=== PATIENT | female | born 1955 | race Caucasian/White ===

== ENCOUNTER 2016-10-14 11:12 | Observation (INO) | payer MEDICAID ==
[2016-10-14] VITALS (8 sets, daily range): BP systolic 110–179; BP diastolic 58–93; PULSE 72–91; RESP 18–24; TEMP 97.3–97.7; O2SAT 92–99
[~2016-10-14] VITALS: Ht 160 cm; Wt 111.0 kg
[~2016-10-14 11:12] MED LIST: ALBU8I INH; CIMZ200K SC; FOLIPOW27; GABA100C4 PO; HYDR200T42 PO; IBUP800T23 PO; LISI-360 PO; METH2.5 PO; PRED-1 PO
--- NOTE | 2016-10-14 11:31 | PD ---
HPI Chief Complaint: Respiratory Distress Time Seen by Provider: 11:31 Travel History International Travel<30 days: No Contact w/Intl Traveler<30days: No Traveled to known affect area: No History of Present Illness HPI 61-year-old female presents the emergency department with one week history of increasing shortness of breath and wheezing. Patient does not speak Serbian but refuses an medical interpreter, but her daughter is here for interpretation. Patient states increasing chest tightness and wheezing, without significant pain. Patient has had fever in the last 24 hours and productive cough of small amount of thick mucus. Patient has history of pneumonia in the past as well as COPD for which she uses an inhaler at home but not nebulizer. Patient has needed prednisone in the past for her lungs. Patient also has significant history for CHF in the past treated with a "water pill" previously. Patient denies chest pain or pressure. She denies nausea, vomiting, or back pain. She denies abdominal pain. She denies urine symptoms. Patient has no headache, sore throat, ear pain. Patient has been using her inhaler more frequently without improvement. She has no known drug allergies. PFSH Past Medical History Arthritis: Yes (ra) Asthma: No Blood Disorders: No Anxiety: Yes Depression: Yes Heart Rhythm Problems: No Cancer: No Cardiovascular Problems: Yes (CHF) High Cholesterol: No Chemotherapy: No Chest Pain: No Congestive Heart Failure: No COPD: No Diabetes: No Endocrine: No Genitourinary: No Hypertension: Yes Immune Disorder: No Musculoskeletal: No Neurologic: No Psychiatric: Yes Reproductive: Yes Respiratory: No Radiation Therapy: No Sleep Apnea: No Thyroid Disease: No ?: Not : 2 Para: 2 Past Surgical History Section: Yes Social History Alcohol Use: No Tobacco Use: No Substance Use: No Allergies-Medications (Allergen,Severity, Reaction): Coded Allergies: No Known Allergies (Unverified , 10/14/16) Reported Meds & Prescriptions Reported Meds & Active Scripts Active Reported Methotrexate 2.5 Mg Tab 15 Mg PO Q7D Potassium 75 Mg Tab 75 Tab PO DAILY Folic Acid 5 Mg Cap 5 Mg PO DAILY Gabapentin 100 Mg Cap 100 Mg PO BID Cimzia (2 syringe) Kit Inj (Certolizumab Pegol Inj) 200 Mg/Ml Kit 400 Mg SQ Q14D Administer 2 syringes (400 mg) to separate sites. Furosemide 40 Mg Tab 40 Mg PO DAILY Ibuprofen 800 Mg Tab 800 Mg PO TID Sertraline (Sertraline HCl) 50 Mg Tab 50 Mg PO DAILY Review of Systems Except as stated in HPI: all other systems reviewed are Neg General / Constitutional: Positive: Fever, Chills Eyes: No: Visual changes HENT: No: Headaches, Vertigo, Lightheadedness, Sore Throat, Rhinitis, Rhinorrhea, Congestion, Nosebleed, Neck Stiffness, Neck Pain, Dental Difficulties, Earache Cardiovascular: Positive: Dyspnea on exertion, No: Chest Pain or Discomfort, Palpitations, Irregular Rhythm, Tachycardia, Diaphoresis, Syncope Respiratory: Positive: Cough, Shortness of Breath, Wheezing, Orthopnea, No: Hemoptysis, Stridor, Night Sweats, Pleuritic Pain, Other Gastrointestinal: No: Nausea, Vomiting, Diarrhea, Abdominal Pain Genitourinary: No: Dysuria Musculoskeletal: No: Myalgias, Arthralgias, Limited ROM, Pain Skin: No Rash Neurologic: No: Weakness Psychiatric: No: Depression Endocrine: No: Polydipsia Hematologic/Lymphatic: No: Easy Bruising Physical Exam Narrative GENERAL: Patient appears in mild to moderate respiratory distress. SKIN: Warm and dry. Mild pallor. Normal turgor. HEAD: Atraumatic. Normocephalic. EYES: Pupils equal and round. No scleral icterus. No injection or drainage. ENT: No nasal bleeding or discharge. Mucous membranes pink and moist. TMs are clear. Pharynx is normal. Airway is patent. NECK: Trachea midline. No JVD. Neck is supple nontender. CARDIOVASCULAR: Regular rate and rhythm. RESPIRATORY: Moderate accessory muscle use. Moderate Diffuse wheezes to auscultation. No rales or rhonchi. Breath sounds equal bilaterally. GASTROINTESTINAL: Abdomen soft, non-tender, nondistended. Hepatic and splenic margins not palpable. MUSCULOSKELETAL: Extremities without clubbing, cyanosis, or edema. No obvious deformities. NEUROLOGICAL: Awake and alert. No obvious cranial nerve deficits. Motor grossly within normal limits. Five out of 5 muscle strength in the arms and legs. Normal speech. PSYCHIATRIC: Appropriate mood and affect; insight and judgment normal. Data Data Last Documented VS Vital Signs Date Time Temp Pulse Resp B/P Pulse Ox O2 Delivery O2 Flow Rate FiO2 10/14/16 12:52 77 23 144/86 99 Nasal Cannula 2 10/14/16 11:15 97.7 Orders Electrocardiogram (10/14/16 11:34) Complete Blood Count With Diff (10/14/16 11:34) Comprehensive Metabolic Panel (10/14/16 11:34) Chest, Pa & Lat (10/14/16 11:34) Ecg Monitoring (10/14/16 11:34) Iv Access Insert/Monitor (10/14/16 11:34) Oximetry (10/14/16 11:34) Oxygen Administration (10/14/16 11:34) Methylprednisolone So Succ Inj (Solumedr (10/14/16 11:45) Albuterol-Ipratropium Neb (Duoneb Neb) (10/14/16 11:45) Sodium Chloride 0.9% Flush (Ns Flush) (10/14/16 11:45) B-Type Natriuretic Peptide (10/14/16 11:34) Magnesium (Mg) (10/14/16 11:34) Prothrombin Time / Inr (Pt) (10/14/16 11:34) Act Partial Throm Time (Ptt) (10/14/16 11:34) Troponin I (10/14/16 11:34) Aspirin Chew (Aspirin Chew) (10/14/16 11:45) Furosemide Inj (Lasix Inj) (10/14/16 11:45) Lactic Acid (10/14/16 11:44) Blood Culture (10/14/16 11:44) Urinalysis - C+S If Indicated (10/14/16 11:57) Ceftriaxone Inj (Rocephin Inj) (10/14/16 14:15) Azithromycin Inj (Zithromax Inj) (10/14/16 14:15) Folic Acid (Folate) (10/15/16 09:00) Furosemide (Lasix) (10/15/16 09:00) Gabapentin (Neurontin) (10/14/16 21:00) Sertraline (Zoloft) (10/15/16 09:00) (Nf) Certolizumab Pegol Inj (Cimzia (2 S (10/14/16 14:30) Place In Observation (10/14/16 ) Vital Signs (Adult) Q4H (10/14/16 14:26) Activity Oob Ad Marium (10/14/16 14:26) Intake + Output ROLDAN.QSHIFT (10/14/16 14:26) Notify Dr: Other (10/14/16 14:26) Diet Heart Healthy (10/14/16 Dinner) Sodium Chloride 0.9% Flush (Ns Flush) (10/14/16 14:30) Sodium Chloride 0.9% Flush (Ns Flush) (10/14/16 21:00) Acetaminophen (Tylenol) (10/14/16 14:30) Ondansetron Inj (Zofran Inj) (10/14/16 14:30) Bisacodyl Supp (Dulcolax Supp) (10/14/16 14:30) Docusate Sodium (Colace) (10/14/16 14:30) Basic Metabolic Panel (Bmp) (10/15/16 06:00) Complete Blood Count With Diff (10/15/16 06:00) Creatine Kinase (Cpk) (10/14/16 14:26) Creatine Kinase (Cpk) (10/14/16 20:26) Troponin I (10/14/16 14:26) Troponin I (10/14/16 20:26) Enoxaparin Inj (Lovenox Inj) (10/14/16 14:30) Naloxone Inj (Narcan Inj) (10/14/16 14:30) Labs Laboratory Tests Test 10/14/16 10/14/16 10/14/16 11:42 11:50 12:15 White Blood Count 4.8 TH/MM3 Red Blood Count 3.89 MIL/MM3 Hemoglobin 12.6 GM/DL Hematocrit 35.1 % Mean Corpuscular Volume 90.2 FL Mean Corpuscular Hemoglobin 32.3 PG Mean Corpuscular Hemoglobin 35.8 % Concent Red Cell Distribution Width 12.8 % Platelet Count 227 TH/MM3 Mean Platelet Volume 8.5 FL Neutrophils (%) (Auto) % Lymphocytes (%) (Auto) % Monocytes (%) (Auto) % Eosinophils (%) (Auto) % Basophils (%) (Auto) % Neutrophils # (Auto) TH/MM3 Lymphocytes # (Auto) TH/MM3 Monocytes # (Auto) TH/MM3 Eosinophils # (Auto) TH/MM3 Basophils # (Auto) TH/MM3 CBC Comment AUTO DIFF Differential Total Cells 100 Counted Neutrophils % (Manual) 24 % Band Neutrophils % 8 % Lymphocytes % 52 % Monocytes % 8 % Eosinophils % 8 % Neutrophils # (Manual) 1.5 TH/MM3 Differential Comment FINAL DIFF MANUAL Platelet Estimate NORMAL Platelet Morphology Comment NORMAL Red Cell Morphology Comment NORMAL Prothrombin Time 10.9 SEC Prothromb Time International 1.0 RATIO Ratio Activated Partial 24.0 SEC Thromboplast Time Sodium Level 140 MEQ/L Potassium Level 3.7 MEQ/L Chloride Level 108 MEQ/L Carbon Dioxide Level 23.6 MEQ/L Anion Gap 8 MEQ/L Blood Urea Nitrogen 11 MG/DL Creatinine 0.50 MG/DL Estimat Glomerular Filtration 126 ML/MIN Rate Random Glucose 99 MG/DL Calcium Level 8.1 MG/DL Magnesium Level 2.0 MG/DL Total Bilirubin 0.3 MG/DL Aspartate Amino Transf 48 U/L (AST/SGOT) Alanine Aminotransferase 42 U/L (ALT/SGPT) Alkaline Phosphatase 71 U/L Troponin I LESS THAN 0.02 NG/ML B-Type Natriuretic Peptide 74 PG/ML Total Protein 7.9 GM/DL Albumin 3.2 GM/DL Lactic Acid Level 0.8 mmol/L Urine Color LIGHT-YELLOW Urine Turbidity CLEAR Urine pH 5.5 Urine Specific [place] 1.007 Urine Protein NEG mg/dL Urine Glucose (UA) NEG mg/dL Urine Ketones NEG mg/dL Urine Occult Blood NEG Urine Nitrite NEG Urine Bilirubin NEG Urine Urobilinogen LESS THAN 2.0 MG/DL Urine Leukocyte Esterase NEG Urine RBC LESS THAN 1 /hpf Urine WBC 2 /hpf Urine Squamous Epithelial 1 /hpf Cells Urine Bacteria OCC /hpf Urine Mucus FEW /lpf Microscopic Urinalysis Comment CULT NOT INDICATED MDM Medical Decision Making Medical Screen Exam Complete: Yes Emergency Medical Condition: Yes Differential Diagnosis COPD with acute exacerbation. Pneumonia. Bronchitis with wheezing. CHF. Cardiac syndrome. Narrative Course Patient is medically stable at time of exam. EKG is ordered. Chest x-ray is ordered. Labs ordered including CBC, CMP, cardiac panel, proBNP, lactic acid, blood cultures 2. IV access is obtained patient is given 40 mg Lasix IV, 125 mg Solu-Medrol IV, and duo nebs every 15 minutes 3. EKG shows sinus rhythm with nonspecific T-wave abnormalities with flattening of the T waves in the ventral leads compared to previous. This is reviewed with Dr. Matias. Laboratories CBC without significant leukocytosis or anemia. CMP is unremarkable. Cardiac panel is normal. ProBNP is within normal limits. Lactic acid is 0.8. Blood cultures are pending. Urinalysis showed no acute findings. Patient did improve slightly after DuoNeb 3 and Solu-Medrol 125 as well as Lasix 40 mg. Patient is discussed with Dr. Matias. Patient continues to have mild to moderate respiratory symptoms. Patient is ambulated with O2 saturation monitoring. Patient is able to ambulate with O2 sats dropping to 94 however patient is very symptomatic with dyspnea and feeling weak while ambulating. 1400 hrs. call was placed to the hospitalist for admission. Diagnosis Primary Impression: Shortness of breath Additional Impression: Acute wheezy bronchitis Admitting Information Admitting Physician Requests: Observation Condition: Stable Hong Stone Oct 14, 2016 11:31
[2016-10-14] MEDS ORDERED: methylPREDNISolone SOD SUCC 125 MG/2 ML VIAL IVP ONE (11:45)
[2016-10-14] MEDS ORDERED: FUROSEMIDE 40 MG/4 ML VIAL IVP ONE (11:45)
[2016-10-14] MEDS ORDERED: ASPIRIN 81 MG CHEW TAB PO ONE (11:45)
[2016-10-14] MEDS ORDERED: SODIUM CHLORIDE 0.9% FLUSH 10 ML FLUSH IVF PRN (11:45)
[2016-10-14] MEDS ORDERED: SERT-132 PO (11:48)
[2016-10-14] MEDS ORDERED: IBUP800T23 PO (11:48)
[2016-10-14] MEDS ORDERED: POTA75TA PO (11:48)
[2016-10-14] MEDS ORDERED: FURO40TA PO (11:48)
[2016-10-14] MEDS ORDERED: CIMZ200K SQ (11:48)
[2016-10-14] MEDS ORDERED: GABA100C4 PO (11:48)
[2016-10-14] MEDS ORDERED: METH2.5T PO (11:48)
[2016-10-14] MEDS ORDERED: FOLI5CAP PO (11:48)
[2016-10-14 12:03] LABS: HEMATOCRIT 35.1 % (35.0-46.0); MEAN CELL VOLUME 90.2 FL (80.0-100.0); MEAN CORPUSCULAR HEMOGLOBIN 32.3 PG (27.0-34.0); MEAN CORPUSCULAR HGB CONC 35.8 % (32.0-36.0); PLATELET COUNT 227 TH/MM3 (150-450); RED BLOOD COUNT 3.89 MIL/MM3 (4.00-5.30); RED CELL DISTRIBUTION WIDTH 12.8 % (11.6-17.2); WHITE BLOOD COUNT 4.8 TH/MM3 (4.0-11.0)
[2016-10-14 12:08] LABS: HEMO FLAGS AUTO DIFF
[2016-10-14 12:12] LABS: PROTHROMBIN TIME - PATIENT 10.9 SEC (9.8-11.6)
[2016-10-14 12:14] LABS: ALT (GPT) 42 U/L (10-53); ANION GAP 8 MEQ/L (5-15); AST (GOT) 48 U/L (15-37); BICARBONATE 23.6 MEQ/L (21.0-32.0); BLOOD UREA NITROGEN 11 MG/DL (7-18); CHLORIDE 108 MEQ/L (98-107); GLOMERULAR FILTRATION RATE 126 ML/MIN (>89); POTASSIUM 3.7 MEQ/L (3.5-5.1); SODIUM (NA) 140 MEQ/L (136-145)
[2016-10-14 12:16] LABS: ALKALINE PHOSPHATASE 71 U/L (45-117); TOTAL BILIRUBIN ADULT 0.3 MG/DL (0.2-1.0)
[2016-10-14] MEDS: RESP: ALBUTEROL 2.5 MG/IPRATROPIUM 0.5 MG NEB (SCH) INH ×2 (12:17→12:18)
--- NOTE | 2016-10-14 12:27 | RADRPT ---
EXAM DATE/TIME: 10/14/2016 12:03 [facility] COMPARISON: CHEST SINGLE AP, January 16, 2016, 12:08. INDICATIONS : Shortness of breath. MEDICAL HISTORY : Hypertension. SURGICAL HISTORY : None. ENCOUNTER: Initial ACUITY: 1 day PAIN SCORE: 0/10 LOCATION: Bilateral chest FINDINGS: The lungs are clear without infiltrate, nodule, or mass. There is no appreciable pleural effusion fo r technique. Heart and mediastinum are unremarkable. There is prominence of the perivascular marking s with crowding of the bronchovascular markings may be due to expiratory state of this radiograph, ho wever slight interstitial process is not excluded. CONCLUSION: Prominence of the perivascular markings with crowding of the bronchovascular oliver ings may be due to expiratory state of this radiograph, however slight interstitial process is not ex cluded. Triston Maxwell MD on October 14, 2016 at 12:22 Board Certified Radiologist. This report was verified electronically.
[2016-10-14 12:40] LABS: BACTERIA, URINE OCC /hpf; BLOOD, URINE NEG (NEG); COMMENT (UR) CULT NOT INDICATED; CULTURE IF INDICATED CULT NOT INDICATED; GLUCOSE,URINE NEG (NEG); KETONE, URINE NEG (NEG); MUCUS URINE FEW /lpf (OCC); NITRITE,URINE NEG (NEG); PH, URINE 5.5 (5.0-8.5); SQUAMOUS EPITHELIAL CELL URINE 1 /hpf (0-5); URINE COLOR LIGHT-YELLOW (YELLW/STRAW)
[2016-10-14 12:47] LABS: BANDS 8 % (0-6); EOSINOPHILS 8 % (0-4); NEUTROPHIL # MANUAL DIFF 1.5 TH/MM3 (1.8-7.7); PLATELET ESTIMATE SMEAR NORMAL (NORMAL); PLATELET MORPHOLOGY NORMAL (NORMAL); POLYS (SEG NEUTROPHILS) 24 % (16-70); SCAN/DIFF FINAL DIFF MANUAL; WBC DIFF SAMPLE 100
[2016-10-14] MEDS ORDERED: cefTRIAXone INJ 1,000 MG in SODIUM CHLORIDE 0.9% INJ 100 ML IV ONE (14:15)
[2016-10-14] MEDS ORDERED: AZITHROMYCIN INJ 500 MG in SODIUM CHLOR 0.9% 250 ML INJ 250 ML IV ONE (14:15)
[2016-10-14] MEDS: DOCUSATE SODIUM 100 MG CAP PO SCH ×2 (14:30→20:03)
[2016-10-14] MEDS ORDERED: SODIUM CHLORIDE 0.9% FLUSH 10 ML FLUSH IV FLUSH PRN (14:30)
[2016-10-14] MEDS ORDERED: NALOXONE HCL 0.4 MG/ML AMP IV PRN (14:30)
[2016-10-14] MEDS ORDERED: BISACODYL 10 MG SUPP RECTAL PRN (14:30)
[2016-10-14] MEDS ORDERED: ONDANSETRON HCL 4 MG/2 ML VIAL IVP PRN (14:30)
--- NOTE | 2016-10-14 14:31 | HHI.HP ---
[facility] Christi King MD Admission Diagnosis Dyspnea, Wheezing Diagnoses: Chief Complaint: Shortness of breath Travel History International Travel<30 Days: No Contact w/Intl Traveler <30 Da: No Traveled to Known Affected Are: No History of Present Illness This is a pleasant 61 y/o Female with Rheumatoid arthritis who came to Emergency Room with worsening shortness of breath she has COPD, Morbid Obesity, Anxiety, Depression, CHF, She denied any previous history of DVT or PE. No abdominal pain diarrhea constipation, she has SOB and wheezing, Pulmonary congestion, cough with small amount of thick mucus, has history of Pneumonia, as per patient her symptomatology is worsening, BNP within normal limits, has Severe Expiratory wheezing, decreased breath sounds. Review of Systems Respiratory: COMPLAINS OF: Cough, Wheezing, Sputum production, Shortness of breath Past Family Social History Past Medical History Rheumatoid arthritis Anxiety Disorder Depression CHF Hypertension Past Surgical History C section Reported Medications Reported Meds & Active Scripts Active Reported Methotrexate 2.5 Mg Tab 15 Mg PO Q7D Potassium 75 Mg Tab 75 Tab PO DAILY Folic Acid 5 Mg Cap 5 Mg PO DAILY Gabapentin 100 Mg Cap 100 Mg PO BID Cimzia (2 syringe) Kit Inj (Certolizumab Pegol Inj) 200 Mg/Ml Kit 400 Mg SQ Q14D Administer 2 syringes (400 mg) to separate sites. Furosemide 40 Mg Tab 40 Mg PO DAILY Ibuprofen 800 Mg Tab 800 Mg PO TID Sertraline (Sertraline HCl) 50 Mg Tab 50 Mg PO DAILY Allergies: Coded Allergies: No Known Allergies (Unverified , 10/14/16) Active Ordered Medications Current Medications Medications (Trade) Dose Ordered Sig/[place]andy Route Start Time Stop Time Status Last Admin (NS Flush) 2 ml UNSCH PRN IVF 10/14/16 11:45 (Folate) 5 mg DAILY PO 10/15/16 09:00 (Lasix) 40 mg DAILY PO 10/15/16 09:00 (Neurontin) 100 mg BID PO 10/14/16 21:00 (Zoloft) 50 mg DAILY PO 10/15/16 09:00 Non-Formulary Medication 400 mg Q14D SQ 10/14/16 14:30 UNV (NS Flush) 2 ml UNSCH PRN IV FLUSH 10/14/16 14:30 (NS Flush) 2 ml BID IV FLUSH 10/14/16 21:00 (Tylenol) 650 mg Q4H PRN PO 10/14/16 14:30 (Zofran Inj) 4 mg Q6H PRN IVP 10/14/16 14:30 (Dulcolax Supp) 10 mg DAILY PRN RECTAL 10/14/16 14:30 (Colace) 100 mg Q12HR PO 10/14/16 14:30 (Lovenox Inj) 40 mg Q24H SQ 10/14/16 16:00 10/14/16 15:09 (Narcan Inj) 0.4 mg UNSCH PRN IV 10/14/16 14:30 (Mucinex Er) 600 mg BID PO 10/14/16 15:00 10/14/16 15:09 Family History Mother with Hypertension and CAD Social History Denies any toxic habits. Physical Exam Vital Signs Vital Signs Date Time Temp Pulse Resp B/P Pulse Ox O2 Delivery O2 Flow Rate FiO2 10/14/16 12:52 77 23 144/86 99 Nasal Cannula 2 10/14/16 12:20 98 Nasal Cannula 2.00 10/14/16 11:53 98 Nasal Cannula 2 10/14/16 11:49 72 20 149/72 98 Nasal Cannula 2 10/14/16 11:15 97.7 87 18 179/93 96 Physical Exam GENERAL: Morbid obesity and in Moderate respiratory distress. SKIN: Warm and dry. Mild pallor. Normal turgor. HEAD: Atraumatic. Normocephalic. EYES: Pupils equal and round. No scleral icterus. No injection or drainage. ENT: No nasal bleeding or discharge. Mucous membranes pink and moist. TMs are clear. Pharynx is normal. Airway is patent. NECK: Trachea midline. No JVD. Neck is supple nontender. CARDIOVASCULAR: Regular rate and rhythm. RESPIRATORY: Decreased breath sounds bilateral, expiratory wheezing, no crackles. GASTROINTESTINAL: Abdomen soft, non-tender, nondistended. Hepatic and splenic margins not palpable. MUSCULOSKELETAL: Extremities without clubbing, cyanosis, or edema. No obvious deformities. NEUROLOGICAL: Awake and alert. No obvious cranial nerve deficits. Motor grossly within normal limits. Five out of 5 muscle strength in the arms and legs. Normal speech. PSYCHIATRIC: Appropriate mood and affect; insight and judgment normal. Laboratory Laboratory Tests Test 10/14/16 10/14/16 10/14/16 11:42 11:50 12:15 White Blood Count 4.8 Red Blood Count 3.89 Hemoglobin 12.6 Hematocrit 35.1 Mean Corpuscular Volume 90.2 Mean Corpuscular Hemoglobin 32.3 Mean Corpuscular Hemoglobin 35.8 Concent Red Cell Distribution Width 12.8 Platelet Count 227 Mean Platelet Volume 8.5 Neutrophils (%) (Auto) Lymphocytes (%) (Auto) Monocytes (%) (Auto) Eosinophils (%) (Auto) Basophils (%) (Auto) Neutrophils # (Auto) Lymphocytes # (Auto) Monocytes # (Auto) Eosinophils # (Auto) Basophils # (Auto) CBC Comment AUTO DIFF Differential Total Cells 100 Counted Neutrophils % (Manual) 24 Band Neutrophils % 8 Lymphocytes % 52 Monocytes % 8 Eosinophils % 8 Neutrophils # (Manual) 1.5 Differential Comment FINAL DIFF MANUAL Platelet Estimate NORMAL Platelet Morphology Comment NORMAL Red Cell Morphology Comment NORMAL Prothrombin Time 10.9 Prothromb Time International 1.0 Ratio Activated Partial 24.0 Thromboplast Time Sodium Level 140 Potassium Level 3.7 Chloride Level 108 Carbon Dioxide Level 23.6 Anion Gap 8 Blood Urea Nitrogen 11 Creatinine 0.50 Estimat Glomerular Filtration 126 Rate Random Glucose 99 Calcium Level 8.1 Magnesium Level 2.0 Total Bilirubin 0.3 Aspartate Amino Transf 48 (AST/SGOT) Alanine Aminotransferase 42 (ALT/SGPT) Alkaline Phosphatase 71 Troponin I LESS THAN 0.02 B-Type Natriuretic Peptide 74 Total Protein 7.9 Albumin 3.2 Lactic Acid Level 0.8 Urine Color LIGHT-YELLOW Urine Turbidity CLEAR Urine pH 5.5 Urine Specific [place] 1.007 Urine Protein NEG Urine Glucose (UA) NEG Urine Ketones NEG Urine Occult Blood NEG Urine Nitrite NEG Urine Bilirubin NEG Urine Urobilinogen LESS THAN 2.0 Urine Leukocyte Esterase NEG Urine RBC LESS THAN 1 Urine WBC 2 Urine Squamous Epithelial 1 Cells Urine Bacteria OCC Urine Mucus FEW Microscopic Urinalysis Comment CULT NOT INDICATED Date/Time Procedure Status Source Growth 10/14/16 11:35 Aerobic Blood Culture Received Blood Peripheral Pending 10/14/16 11:35 Anaerobic Blood Culture Received Blood Peripheral Pending Result Diagram: 10/14/16 1142 10/14/16 1142 Imaging Last Impressions Chest X-Ray 10/14/16 1134 Signed Impressions: Service Date/Time: Friday, October 14, 2016 12:03 - CONCLUSION: Prominence of the perivascular markings with crowding of the bronchovascular markings may be due to expiratory state of this radiograph, however slight interstitial process is not excluded. Triston Maxwell MD Assessment and Plan Assessment and Plan 1. COPD exacerbation, started on Mucolytic, Bronchodilator, Incentive spirometry Steroids. antibiotics, no signs of infection. 2. Hypertension Mild Uncontrol continue home medicines. 3. Rheumatoid Arthritis History to continue Home medicines. 4. Questionable CHF seen last Echocardiogram no CHF, BNP 74 5. Morbid Obesity strongly recommended to decrease weight diet and exercise warranted. Discussed with JOSH Stone -DVT prophylaxis on Lovenox Discussed Condition With Patient and her Daughter in the room. Code Status Full Code. Discussed Condition With Patient, Daughter Miss Porter and PA. Medardo Scott MD Oct 14, 2016 14:31
[2016-10-14] MEDS: ENOXAPARIN SODIUM 40 MG/0.4 ML SYRINGE SQ SCH (15:09)
[2016-10-14] MEDS: guaiFENesin E.R. 600 MG TAB PO SCH ×2 (15:09→20:04)
[2016-10-14] MEDS: RESP: ALBUTEROL 2.5 MG/IPRATROPIUM 0.5 MG NEB (SCH) NEB ×3 (15:28→23:25)
[2016-10-14] MEDS ORDERED: CHLORPHENIR/HYDROCOD LIQUID 8 MG/10 MG/5 ML CUP PO ONE (16:15)
[2016-10-14 19:24] LABS: CREATINE KINASE 357 U/L (26-192)
[2016-10-14 19:36] LABS: CKMB 9.1 NG/ML (0.5-3.6)
[2016-10-14] MEDS: SODIUM CHLORIDE 0.9% FLUSH 10 ML FLUSH IV FLUSH SCH (20:04)
[2016-10-14] MEDS: GABAPENTIN 100 MG CAP PO SCH (20:04)
[2016-10-14] MEDS: methylPREDNISolone SOD SUCC 40 MG/1 ML VIAL IV PUSH SCH (20:05)
[2016-10-15] VITALS (8 sets, daily range): BP systolic 106–138; BP diastolic 53–76; PULSE 68–93; RESP 18–20; TEMP 97.6–98.5; O2SAT 94–96
[2016-10-15 01:40] LABS: CREATINE KINASE 299 U/L (26-192)
[2016-10-15 01:53] LABS: CKMB 7.3 NG/ML (0.5-3.6)
[2016-10-15] MEDS: RESP: ALBUTEROL 2.5 MG/IPRATROPIUM 0.5 MG NEB (SCH) NEB ×6 (03:25→23:22)
[2016-10-15 05:27] LABS: AUTOMATED NEUTROPHIL # 2.4 TH/MM3 (1.8-7.7); BASOPHIL % 0.1 % (0.0-2.0); HEMATOCRIT 34.7 % (35.0-46.0); HEMO FLAGS DIFF FINAL; LYMPH % 25.6 % (9.0-44.0); LYMPHOCYTE # 0.8 TH/MM3 (1.0-4.8); MEAN CORPUSCULAR HGB CONC 33.7 % (32.0-36.0); MONO % 1.8 % (0.0-8.0); NEUT % 72.5 % (16.0-70.0); PLATELET COUNT 209 TH/MM3 (150-450); RED BLOOD COUNT 3.77 MIL/MM3 (4.00-5.30); RED CELL DISTRIBUTION WIDTH 12.8 % (11.6-17.2); WHITE BLOOD COUNT 3.3 TH/MM3 (4.0-11.0)
[2016-10-15 05:57] LABS: BICARBONATE 21.7 MEQ/L (21.0-32.0); POTASSIUM 3.6 MEQ/L (3.5-5.1)
[2016-10-15] MEDS: ACETAMINOPHEN 325 MG TAB PO PRN ×2 (07:02→19:40)
--- NOTE | 2016-10-15 08:03 | HHI.PR ---
Subjective Remarks This is a pleasant 61 y/o Female with Rheumatoid arthritis who came to Emergency Room with worsening shortness of breath she has COPD, Morbid Obesity, Anxiety, Depression, CHF, She denied any previous history of DVT or PE. No abdominal pain diarrhea constipation, she has SOB and wheezing, Pulmonary congestion, cough with small amount of thick mucus, has history of Pneumonia, as per patient her symptomatology is worsening, BNP within normal limits, has Severe Expiratory wheezing, decreased breath sounds. 10/15: Stable seen in her bedroom, continue with respiratory distress but moderate compared with yesterday has better Oxygen saturation, now not wheezing, has left basal inspiratory crackles. No Nausea, vomit or diarrhea. Objective Vital Signs Date Time Temp Pulse Resp B/P Pulse Ox O2 Delivery O2 Flow Rate FiO2 10/15/16 07:39 98.3 93 18 138/67 95 10/15/16 07:24 94 Nasal Cannula 1.00 10/15/16 04:17 98.0 89 20 106/53 95 10/15/16 00:29 97.6 84 20 108/54 95 10/14/16 20:22 92 Nasal Cannula 1.00 10/14/16 17:16 97.3 86 18 118/58 96 10/14/16 16:01 91 24 145/90 99 Nasal Cannula 2 10/14/16 15:10 78 21 110/61 98 Nasal Cannula 2 10/14/16 12:52 77 23 144/86 99 Nasal Cannula 2 10/14/16 12:20 98 Nasal Cannula 2.00 10/14/16 11:53 98 Nasal Cannula 2 10/14/16 11:49 72 20 149/72 98 Nasal Cannula 2 10/14/16 11:15 97.7 87 18 179/93 96 Result Diagram: 10/15/16 0403 10/15/16 0403 Imaging Last Impressions Chest X-Ray 10/14/16 1134 Signed Impressions: Service Date/Time: Friday, October 14, 2016 12:03 - CONCLUSION: Prominence of the perivascular markings with crowding of the bronchovascular markings may be due to expiratory state of this radiograph, however slight interstitial process is not excluded. Triston Maxwell MD Procedures No procedures performed Other Results Laboratory Tests Test 10/14/16 10/14/16 10/14/16 10/15/16 11:42 11:50 12:15 00:25 Differential Total Cells 100 Counted Neutrophils % (Manual) 24 % Band Neutrophils % 8 % Lymphocytes % 52 % Monocytes % 8 % Eosinophils % 8 % Neutrophils # (Manual) 1.5 TH/MM3 Platelet Estimate NORMAL Platelet Morphology Comment NORMAL Red Cell Morphology Comment NORMAL Prothrombin Time 10.9 SEC Prothromb Time International 1.0 RATIO Ratio Activated Partial 24.0 SEC Thromboplast Time Magnesium Level 2.0 MG/DL Total Bilirubin 0.3 MG/DL Aspartate Amino Transf 48 U/L (AST/SGOT) Alanine Aminotransferase 42 U/L (ALT/SGPT) Alkaline Phosphatase 71 U/L B-Type Natriuretic Peptide 74 PG/ML Total Protein 7.9 GM/DL Albumin 3.2 GM/DL Lactic Acid Level 0.8 mmol/L Urine Color LIGHT-YELLOW Urine Turbidity CLEAR Urine pH 5.5 Urine Specific Abbott 1.007 Urine Protein NEG mg/dL Urine Glucose (UA) NEG mg/dL Urine Ketones NEG mg/dL Urine Occult Blood NEG Urine Nitrite NEG Urine Bilirubin NEG Urine Urobilinogen LESS THAN 2.0 MG/DL Urine Leukocyte Esterase NEG Urine RBC LESS THAN 1 /hpf Urine WBC 2 /hpf Urine Squamous Epithelial 1 /hpf Cells Urine Bacteria OCC /hpf Urine Mucus FEW /lpf Microscopic Urinalysis Comment CULT NOT INDICATED Total Creatine Kinase 299 U/L Creatine Kinase MB 7.3 NG/ML Creatine Kinase MB % 2.4 % Troponin I LESS THAN 0.02 NG/ML Test 10/15/16 04:03 White Blood Count 3.3 TH/MM3 Red Blood Count 3.77 MIL/MM3 Hemoglobin 11.7 GM/DL Hematocrit 34.7 % Mean Corpuscular Volume 92.0 FL Mean Corpuscular Hemoglobin 31.0 PG Mean Corpuscular Hemoglobin 33.7 % Concent Red Cell Distribution Width 12.8 % Platelet Count 209 TH/MM3 Mean Platelet Volume 8.6 FL Neutrophils (%) (Auto) 72.5 % Lymphocytes (%) (Auto) 25.6 % Monocytes (%) (Auto) 1.8 % Eosinophils (%) (Auto) 0.0 % Basophils (%) (Auto) 0.1 % Neutrophils # (Auto) 2.4 TH/MM3 Lymphocytes # (Auto) 0.8 TH/MM3 Monocytes # (Auto) 0.1 TH/MM3 Eosinophils # (Auto) 0.0 TH/MM3 Basophils # (Auto) 0.0 TH/MM3 CBC Comment DIFF FINAL Differential Comment Sodium Level 141 MEQ/L Potassium Level 3.6 MEQ/L Chloride Level 108 MEQ/L Carbon Dioxide Level 21.7 MEQ/L Anion Gap 11 MEQ/L Blood Urea Nitrogen 17 MG/DL Creatinine 0.61 MG/DL Estimat Glomerular Filtration 100 ML/MIN Rate Random Glucose 130 MG/DL Calcium Level 8.0 MG/DL Objective Remarks GENERAL: Morbid obesity and in Moderate respiratory distress. SKIN: Warm and dry. Mild pallor. Normal turgor. HEAD: Atraumatic. Normocephalic. EYES: Pupils equal and round. No scleral icterus. No injection or drainage. ENT: No nasal bleeding or discharge. Mucous membranes pink and moist. TMs are clear. Pharynx is normal. Airway is patent. NECK: Trachea midline. No JVD. Neck is supple nontender. CARDIOVASCULAR: Regular rate and rhythm. RESPIRATORY: Decreased breath sounds bilateral, No Wheezing has Mild inspiratory crackles on left Lung. GASTROINTESTINAL: Abdomen soft, non-tender, nondistended. Hepatic and splenic margins not palpable. MUSCULOSKELETAL: Extremities without clubbing, cyanosis, or edema. No obvious deformities. NEUROLOGICAL: Awake and alert. No obvious cranial nerve deficits. Motor grossly within normal limits. Five out of 5 muscle strength in the arms and legs. Normal speech. PSYCHIATRIC: Appropriate mood and affect; insight and judgment normal. Medications and IVs Current Medications Medications (Trade) Dose Ordered Sig/Kandy Route Start Time Stop Time Status Last Admin (NS Flush) 2 ml UNSCH PRN IVF 10/14/16 11:45 (Folate) 5 mg DAILY PO 10/15/16 09:00 (Lasix) 40 mg DAILY PO 10/15/16 09:00 (Neurontin) 100 mg BID PO 10/14/16 21:00 10/14/16 20:04 (Zoloft) 50 mg DAILY PO 10/15/16 09:00 Patient Own Medication PT OWN MED: CERTOLIZUMAB PE... Q14D SQ 10/15/16 09:00 Future Hold (NS Flush) 2 ml UNSCH PRN IV FLUSH 10/14/16 14:30 (NS Flush) 2 ml BID IV FLUSH 10/14/16 21:00 10/14/16 20:04 (Tylenol) 650 mg Q4H PRN PO 10/14/16 14:30 10/15/16 07:02 (Zofran Inj) 4 mg Q6H PRN IVP 10/14/16 14:30 (Dulcolax Supp) 10 mg DAILY PRN RECTAL 10/14/16 14:30 (Colace) 100 mg Q12HR PO 10/14/16 14:30 (Lovenox Inj) 40 mg Q24H SQ 10/14/16 16:00 10/14/16 15:09 (Narcan Inj) 0.4 mg UNSCH PRN IV 10/14/16 14:30 (Mucinex Er) 600 mg BID PO 10/14/16 15:00 10/14/16 20:04 (SoluMEDROL INJ) 40 mg Q12HR IV PUSH 10/14/16 21:00 10/14/16 20:05 Azithromycin 500 mg 500 mg DAILY PO 10/15/16 09:00 (Rocephin Inj/NS Inj) 100 ml @ 200 mls/hr Q24H IV 10/15/16 15:00 (Flu (Quadrivalent) Vaccine Inj) 0.5 ml ONCE ONCE IM 10/15/16 10:00 10/15/16 10:01 (Pneumovax-23 Inj) 25 mcg ONCE ONCE IM 10/15/16 10:00 10/15/16 10:01 A/P Assessment and Plan 1. COPD exacerbation, started on Mucolytic, Bronchodilator, Incentive spirometry Steroids. antibiotics, no signs of infection. Improving condition 2. Hypertension Controlled 3. Rheumatoid Arthritis History to continue Home medicines. 4. Questionable CHF seen last Echocardiogram no CHF, BNP 74 5. Morbid Obesity strongly recommended to decrease weight diet and exercise warranted. -DVT prophylaxis on Lovenox Discussed Condition With Patient and her Daughter in the room. Code Status Full Code. Discharge Planning Expected by tomorrow Medardo Scott MD Oct 15, 2016 08:03
[2016-10-15] MEDS ORDERED: POTASSIUM CHLORIDE 20 MEQ CONTROLLED RELEASE TAB PO ONE (08:15)
[2016-10-15] MEDS ORDERED: CERTOLIZUMAB PEGOL 400 MG SQ SCH (09:00)
[2016-10-15] MEDS: AZITHROMYCIN 250 MG TAB PO SCH (09:10)
[2016-10-15] MEDS: SERTRALINE HCL 50 MG TAB PO SCH (09:10)
[2016-10-15] MEDS: GABAPENTIN 100 MG CAP PO SCH ×2 (09:10→21:24)
[2016-10-15] MEDS: FOLIC ACID 1 MG TAB PO SCH (09:13)
[2016-10-15] MEDS: guaiFENesin E.R. 600 MG TAB PO SCH ×2 (09:14→21:24)
[2016-10-15] MEDS: FUROSEMIDE 40 MG TAB PO SCH (09:14)
[2016-10-15] MEDS: DOCUSATE SODIUM 100 MG CAP PO SCH ×2 (09:14→21:24)
[2016-10-15] MEDS: methylPREDNISolone SOD SUCC 40 MG/1 ML VIAL IV PUSH SCH ×2 (09:15→21:24)
[2016-10-15] MEDS: SODIUM CHLORIDE 0.9% FLUSH 10 ML FLUSH IV FLUSH SCH ×2 (09:16→21:23)
[2016-10-15] MEDS ORDERED: PNEUMOCOCCAL POLYVALENT INJ 25 MCG/0.5 ML SYR IM ONE (10:00)
[2016-10-15] MEDS ORDERED: INFLUENZA VIRUS VACCINE (QUADRIVALENT) 0.5 ML SYR IM ONE (10:00)
[2016-10-15] MEDS ORDERED: FOLI1TAB4 PO (11:02)
[2016-10-15] MEDS ORDERED: cefTRIAXone INJ 1,000 MG in SODIUM CHLORIDE 0.9% INJ 100 ML IV SCH (15:00)
--- NOTE | 2016-10-15 15:22 | EKG ---
Date Performed: 10/14/2016 Time Performed: 12:20:10 PTAGE: 61 years EKG: Sinus rhythm NONSPECIFIC T-WAVE ABNORMALITY When compared to previous tracing, ST-T changes are somewhat More pro minant. Otherwise no significant change. BORDERLINE ECG PREVIOUS TRACING : 01/17/2016 00.25 DOCTOR: Dominic Fay Interpretating Date/Time 10/15/2016 15:20:49
[2016-10-15] MEDS: ENOXAPARIN SODIUM 40 MG/0.4 ML SYRINGE SQ SCH (17:09)
[2016-10-16] VITALS: BP 128/69; PULSE 86; RESP 20; TEMP 98; O2SAT 94
[2016-10-16] MEDS: RESP: ALBUTEROL 2.5 MG/IPRATROPIUM 0.5 MG NEB (SCH) NEB ×3 (03:01→11:49)
[2016-10-16 04:00] VITALS: BP 129/84; PULSE 89; RESP 20; TEMP 98.4; O2SAT 93
[2016-10-16 07:07] VITALS: BP 116/77; PULSE 75; RESP 18; TEMP 98.1; O2SAT 93
[2016-10-16 07:48] VITALS: O2SAT 96
[2016-10-16] MEDS: ACETAMINOPHEN 325 MG TAB PO PRN (08:04)
[2016-10-16] MEDS: guaiFENesin E.R. 600 MG TAB PO SCH (08:05)
[2016-10-16] MEDS: FOLIC ACID 1 MG TAB PO SCH (08:06)
[2016-10-16] MEDS: GABAPENTIN 100 MG CAP PO SCH (08:08)
[2016-10-16] MEDS: FUROSEMIDE 40 MG TAB PO SCH (08:08)
[2016-10-16] MEDS: AZITHROMYCIN 250 MG TAB PO SCH (08:09)
[2016-10-16] MEDS: SERTRALINE HCL 50 MG TAB PO SCH (08:09)
[2016-10-16] MEDS: DOCUSATE SODIUM 100 MG CAP PO SCH (08:09)
[2016-10-16] MEDS: methylPREDNISolone SOD SUCC 40 MG/1 ML VIAL IV PUSH SCH (08:13)
[2016-10-16] MEDS: SODIUM CHLORIDE 0.9% FLUSH 10 ML FLUSH IV FLUSH SCH (08:15)
--- NOTE | 2016-10-16 08:18 | HHI.PR ---
Subjective Remarks This is a pleasant 61 y/o Female with Rheumatoid arthritis who came to Emergency Room with worsening shortness of breath she has COPD, Morbid Obesity, Anxiety, Depression, CHF, She denied any previous history of DVT or PE. No abdominal pain diarrhea constipation, she has SOB and wheezing, Pulmonary congestion, cough with small amount of thick mucus, has history of Pneumonia, as per patient her symptomatology is worsening, BNP within normal limits, has Severe Expiratory wheezing, decreased breath sounds. 10/15: Stable seen in her bedroom, continue with respiratory distress but moderate compared with yesterday has better Oxygen saturation, now not wheezing, has left basal inspiratory crackles. 10/16: Improving condition today, No Nausea, vomit or diarrhea, no decreased oxygen saturation, will be discharge home no need for oxygen. optimized her COPD medication Objective Vital Signs Date Time Temp Pulse Resp B/P Pulse Ox O2 Delivery O2 Flow Rate FiO2 10/16/16 07:48 96 Nasal Cannula 1.00 10/16/16 07:07 98.1 75 18 116/77 93 10/16/16 04:00 98.4 89 20 129/84 93 10/16/16 00:00 98.0 86 20 128/69 94 10/15/16 21:25 22 10/15/16 20:11 96 10/15/16 19:23 97.6 90 20 129/63 94 10/15/16 16:19 98.5 68 20 126/76 95 10/15/16 11:38 89 18 117/56 95 I/O 10/15/16 10/15/16 10/15/16 10/16/16 10/16/16 10/16/16 07:00 15:00 23:00 07:00 15:00 23:00 Intake Total 800 ml Balance 800 ml Intake Oral 800 ml # Voids 1 1 Result Diagram: 10/15/16 0403 10/15/16 0403 Imaging Last Impressions Chest X-Ray 10/14/16 1134 Signed Impressions: Service Date/Time: Friday, October 14, 2016 12:03 - CONCLUSION: Prominence of the perivascular markings with crowding of the bronchovascular markings may be due to expiratory state of this radiograph, however slight interstitial process is not excluded. Triston Maxwell MD Procedures No procedures performed Other Results Laboratory Tests Test 10/14/16 10/14/16 10/14/16/16/17 11:42 11:50 12:15 00:25 Differential Total Cells 100 Counted Neutrophils % (Manual) 24 % Band Neutrophils % 8 % Lymphocytes % 52 % Monocytes % 8 % Eosinophils % 8 % Neutrophils # (Manual) 1.5 TH/MM3 Platelet Estimate NORMAL Platelet Morphology Comment NORMAL Red Cell Morphology Comment NORMAL Prothrombin Time 10.9 SEC Prothromb Time International 1.0 RATIO Ratio Activated Partial 24.0 SEC Thromboplast Time Magnesium Level 2.0 MG/DL Total Bilirubin 0.3 MG/DL Aspartate Amino Transf 48 U/L (AST/SGOT) Alanine Aminotransferase 42 U/L (ALT/SGPT) Alkaline Phosphatase 71 U/L B-Type Natriuretic Peptide 74 PG/ML Total Protein 7.9 GM/DL Albumin 3.2 GM/DL Lactic Acid Level 0.8 mmol/L Urine Color LIGHT-YELLOW Urine Turbidity CLEAR Urine pH 5.5 Urine Specific [place] 1.007 Urine Protein NEG mg/dL Urine Glucose (UA) NEG mg/dL Urine Ketones NEG mg/dL Urine Occult Blood NEG Urine Nitrite NEG Urine Bilirubin NEG Urine Urobilinogen LESS THAN 2.0 MG/DL Urine Leukocyte Esterase NEG Urine RBC LESS THAN 1 /hpf Urine WBC 2 /hpf Urine Squamous Epithelial 1 /hpf Cells Urine Bacteria OCC /hpf Urine Mucus FEW /lpf Microscopic Urinalysis Comment CULT NOT INDICATED Total Creatine Kinase 299 U/L Creatine Kinase MB 7.3 NG/ML Creatine Kinase MB % 2.4 % Troponin I LESS THAN 0.02 NG/ML Test 10/15/16 04:03 White Blood Count 3.3 TH/MM3 Red Blood Count 3.77 MIL/MM3 Hemoglobin 11.7 GM/DL Hematocrit 34.7 % Mean Corpuscular Volume 92.0 FL Mean Corpuscular Hemoglobin 31.0 PG Mean Corpuscular Hemoglobin 33.7 % Concent Red Cell Distribution Width 12.8 % Platelet Count 209 TH/MM3 Mean Platelet Volume 8.6 FL Neutrophils (%) (Auto) 72.5 % Lymphocytes (%) (Auto) 25.6 % Monocytes (%) (Auto) 1.8 % Eosinophils (%) (Auto) 0.0 % Basophils (%) (Auto) 0.1 % Neutrophils # (Auto) 2.4 TH/MM3 Lymphocytes # (Auto) 0.8 TH/MM3 Monocytes # (Auto) 0.1 TH/MM3 Eosinophils # (Auto) 0.0 TH/MM3 Basophils # (Auto) 0.0 TH/MM3 CBC Comment DIFF FINAL Differential Comment Sodium Level 141 MEQ/L Potassium Level 3.6 MEQ/L Chloride Level 108 MEQ/L Carbon Dioxide Level 21.7 MEQ/L Anion Gap 11 MEQ/L Blood Urea Nitrogen 17 MG/DL Creatinine 0.61 MG/DL Estimat Glomerular Filtration 100 ML/MIN Rate Random Glucose 130 MG/DL Calcium Level 8.0 MG/DL Objective Remarks GENERAL: Morbid obesity and in Moderate respiratory distress. SKIN: Warm and dry. Mild pallor. Normal turgor. HEAD: Atraumatic. Normocephalic. EYES: Pupils equal and round. No scleral icterus. No injection or drainage. ENT: No nasal bleeding or discharge. Mucous membranes pink and moist. TMs are clear. Pharynx is normal. Airway is patent. NECK: Trachea midline. No JVD. Neck is supple nontender. CARDIOVASCULAR: Regular rate and rhythm. RESPIRATORY: Decreased breath sounds bilateral, No Wheezing and no crackles. GASTROINTESTINAL: Abdomen soft, non-tender, nondistended. Hepatic and splenic margins not palpable. MUSCULOSKELETAL: Extremities without clubbing, cyanosis, or edema. No obvious deformities. NEUROLOGICAL: Awake and alert. No obvious cranial nerve deficits. Motor grossly within normal limits. Five out of 5 muscle strength in the arms and legs. Normal speech. PSYCHIATRIC: Appropriate mood and affect; insight and judgment normal. Medications and IVs Current Medications Medications (Trade) Dose Ordered Sig/Kandy Route Start Time Stop Time Status Last Admin (NS Flush) 2 ml UNSCH PRN IVF 10/14/16 11:45 (Folate) 5 mg DAILY PO 10/15/16 09:00 10/16/16 08:06 (Lasix) 40 mg DAILY PO 10/15/16 09:00 10/16/16 08:08 (Neurontin) 100 mg BID PO 10/14/16 21:00 10/16/16 08:08 (Zoloft) 50 mg DAILY PO 10/15/16 09:00 10/16/16 08:09 Patient Own Medication PT OWN MED: CERTOLIZUMAB PE... Q14D SQ 10/15/16 09:00 Hold (NS Flush) 2 ml UNSCH PRN IV FLUSH 10/14/16 14:30 (NS Flush) 2 ml BID IV FLUSH 10/14/16 21:00 10/16/16 08:15 (Tylenol) 650 mg Q4H PRN PO 10/14/16 14:30 10/16/16 08:04 (Zofran Inj) 4 mg Q6H PRN IVP 10/14/16 14:30 10/15/16 17:08 (Dulcolax Supp) 10 mg DAILY PRN RECTAL 10/14/16 14:30 (Colace) 100 mg Q12HR PO 10/14/16 14:30 10/16/16 08:09 (Lovenox Inj) 40 mg Q24H SQ 10/14/16 16:00 10/15/16 17:09 (Narcan Inj) 0.4 mg UNSCH PRN IV 10/14/16 14:30 (Mucinex Er) 600 mg BID PO 10/14/16 15:00 10/16/16 08:05 (SoluMEDROL INJ) 40 mg Q12HR IV PUSH 10/14/16 21:00 10/16/16 08:13 Azithromycin 500 mg 500 mg DAILY PO 10/15/16 09:00 10/16/16 08:09 (Rocephin Inj/NS Inj) 100 ml @ 200 mls/hr Q24H IV 10/15/16 15:00 10/15/16 17:08 A/P Assessment and Plan 1. COPD exacerbation, started on Mucolytic, Bronchodilator, Incentive spirometry Steroids. antibiotics, no signs of infection. Improving condition will optimize her Home medicines and discharge Home. follow with PCP. 2. Hypertension Controlled 3. Rheumatoid Arthritis History to continue Home medicines. 4. Questionable CHF seen last Echocardiogram no CHF, BNP 74 5. Morbid Obesity strongly recommended to decrease weight diet and exercise warranted. -DVT prophylaxis on Lovenox Discussed Condition With Patient Code Status Full Code. Discharge Planning Discharge Home today Medardo Scott MD Oct 16, 2016 08:18
[2016-10-16] MEDS ORDERED: SYMB160A INH (09:19)
[2016-10-16] MEDS ORDERED: AZIT500T2 PO (09:19)
[2016-10-16] MEDS ORDERED: IPRASOL NEB (09:19)
[2016-10-16] MEDS ORDERED: PRED10 PO (09:19)
[2016-10-16] MEDS ORDERED: MUCI600T PO (09:19)
--- NOTE | 2016-10-16 09:22 | HHI.DS ---
Discharge Summary Admission Date Oct 14, 2016 at 14:30 Discharge Date: Oct 16, 2016 Admitting Diagnosis Dyspnea, Wheezing (1) COPD (chronic obstructive pulmonary disease) ICD Code: J44.9 Diagnosis: Principal (2) COPD exacerbation ICD Code: J44.1 Diagnosis: Principal Procedures No procedures performed. Brief History - From Admission This is a pleasant 61 y/o Female with Rheumatoid arthritis who came to Emergency Room with worsening shortness of breath she has COPD, Morbid Obesity, Anxiety, Depression, CHF, She denied any previous history of DVT or PE. No abdominal pain diarrhea constipation, she has SOB and wheezing, Pulmonary congestion, cough with small amount of thick mucus, has history of Pneumonia, as per patient her symptomatology is worsening, BNP within normal limits, has Severe Expiratory wheezing, decreased breath sounds. CBC/BMP: 10/15/16 0403 10/15/16 0403 Significant Findings Laboratory Tests Test 10/14/16 10/14/16 10/14/16 10/15/16 11:42 12:15 18:16 00:25 Red Blood Count 3.89 MIL/MM3 (4.00-5.30) Band Neutrophils % 8 % (0-6) Lymphocytes % 52 % (9-44) Eosinophils % 8 % (0-4) Neutrophils # (Manual) 1.5 TH/MM3 (1.8-7.7) Activated Partial 24.0 SEC Thromboplast Time (24.3-30.1) Chloride Level 108 MEQ/L (98-107) Calcium Level 8.1 MG/DL (8.5-10.1) Aspartate Amino Transf 48 U/L (15-37) (AST/SGOT) Troponin I LESS THAN 0.02 LESS THAN 0.02 LESS THAN 0.02 NG/ML NG/ML NG/ML (0.02-0.05) (0.02-0.05) (0.02-0.05) Albumin 3.2 GM/DL (3.4-5.0) Urine Bacteria OCC /hpf (NONE) Urine Mucus FEW /lpf (OCC) Total Creatine Kinase 357 U/L 299 U/L (26-192) (26-192) Creatine Kinase MB 9.1 NG/ML 7.3 NG/ML (0.5-3.6) (0.5-3.6) Test 10/15/16 04:03 White Blood Count 3.3 TH/MM3 (4.0-11.0) Red Blood Count 3.77 MIL/MM3 (4.00-5.30) Hematocrit 34.7 % (35.0-46.0) Neutrophils (%) (Auto) 72.5 % (16.0-70.0) Lymphocytes # (Auto) 0.8 TH/MM3 (1.0-4.8) Chloride Level 108 MEQ/L (98-107) Random Glucose 130 MG/DL (74-106) Calcium Level 8.0 MG/DL (8.5-10.1) Imaging Last Impressions Chest X-Ray 10/14/16 1134 Signed Impressions: Service Date/Time: Sunday, October 14, 2016 12:03 - CONCLUSION: Prominence of the perivascular markings with crowding of the bronchovascular markings may be due to expiratory state of this radiograph, however slight interstitial process is not excluded. Triston Maxwell MD PE at Discharge GENERAL: Morbid obesity and in Moderate respiratory distress. SKIN: Warm and dry. Mild pallor. Normal turgor. HEAD: Atraumatic. Normocephalic. EYES: Pupils equal and round. No scleral icterus. No injection or drainage. ENT: No nasal bleeding or discharge. Mucous membranes pink and moist. TMs are clear. Pharynx is normal. Airway is patent. NECK: Trachea midline. No JVD. Neck is supple nontender. CARDIOVASCULAR: Regular rate and rhythm. RESPIRATORY: Decreased breath sounds bilateral, No Wheezing and no crackles. GASTROINTESTINAL: Abdomen soft, non-tender, nondistended. Hepatic and splenic margins not palpable. MUSCULOSKELETAL: Extremities without clubbing, cyanosis, or edema. No obvious deformities. NEUROLOGICAL: Awake and alert. No obvious cranial nerve deficits. Motor grossly within normal limits. Five out of 5 muscle strength in the arms and legs. Normal speech. PSYCHIATRIC: Appropriate mood and affect; insight and judgment normal. Hospital Course This is a pleasant 61 y/o Female with Rheumatoid arthritis who came to Emergency Room with worsening shortness of breath she has COPD, Morbid Obesity, Anxiety, Depression, CHF, She denied any previous history of DVT or PE. No abdominal pain diarrhea constipation, she has SOB and wheezing, Pulmonary congestion, cough with small amount of thick mucus, has history of Pneumonia, as per patient her symptomatology is worsening, BNP within normal limits, has Severe Expiratory wheezing, decreased breath sounds. 10/15: Stable seen in her bedroom, continue with respiratory distress but moderate compared with yesterday has better Oxygen saturation, now not wheezing, has left basal inspiratory crackles. 10/16: Improving condition today, No Nausea, vomit or diarrhea, no decreased oxygen saturation, will be discharge home no need for oxygen. optimized her COPD medication Assessment and Plan 1. COPD exacerbation, started on Mucolytic, Bronchodilator, Incentive spirometry Steroids. antibiotics, no signs of infection. Improving condition will optimize her Home medicines and discharge Home. follow with PCP. 2. Hypertension Controlled 3. Rheumatoid Arthritis History to continue Home medicines. 4. Questionable CHF seen last Echocardiogram no CHF, BNP 74 5. Morbid Obesity strongly recommended to decrease weight diet and exercise warranted. -DVT prophylaxis on Lovenox Discussed Condition With Patient Code Status Full Code. Discharge Planning Discharge Home today Pt Condition on Discharge: Stable Discharge Disposition: Discharge Home Discharge Time: <= 30 minutes Discharge Instructions DIET: Follow Instructions for: Heart Healthy Diet Activities you can perform: Regular-No Restrictions Medardo Scott MD Oct 16, 2016 09:22
[2016-10-16 10:56] VITALS: BP 143/89; PULSE 94; RESP 18; TEMP 98.1; O2SAT 93
[2016-10-16] MEDS ORDERED: NEBULIZER/ADULT1 KIT (11:04)
== END 2016-10-16 13:13 | disposition home or self-care (01) ==
LOC: NEPE 11:12 → NEDA 14:30 → NEPHCDU 16:39
PROVIDERS: ADMIT Internal Medicine; ATTEND Internal Medicine
DX: J44.1 Chronic obstructive pulmonary disease with (acute) exacerbation (principal); I10 Essential (primary) hypertension; M06.9 Rheumatoid arthritis, unspecified; E66.01 Morbid (severe) obesity due to excess calories; F41.9 Anxiety disorder, unspecified; F32.9 Major depressive disorder, single episode, unspecified; Z87.01 Personal history of pneumonia (recurrent); Z68.41 Body mass index [BMI] 40.0-44.9, adult
CPT/HCPCS: 71020; 80048; 80053; 81001; 82550; 82552; 83605; 83735; 83880; 84484; 85007; 85025; 85027; 85610; 85730; 87040; 90686; 90732; 93005; 94150; 94640; 94664; 96374; 96375; 99285; G0378; J0456; J0696; J1650; J1940; J2405; J2920; J2930; J7050; Q2038